=== PATIENT | female | born 2000 | race Caucasian/White ===

== ENCOUNTER → 2020-09-11 | Outpatient (CLI) | payer OTHER | LOC: LAB 15:49 | PROVIDERS: ATTEND Nurse Practitioner | DX: R69 Illness, unspecified (principal); Z20.828 Contact with and (suspected) exposure to other viral communicable diseases ==

== ENCOUNTER → 2021-05-11 | Outpatient (CLI) | payer OTHER ==
[~2021-05-11] VITALS: Ht 180.3 cm; Wt 108.9 kg
--- NOTE | 2021-05-11 11:38 | EKG ---
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
--- NOTE | 2021-05-13 18:07 | PATH ---
Formerly [facility] [address] [place] [address] PATHOLOGY RPT PROCEDURE Name: CHANDU KWOKANITA Room #: REG ARTIE Lawrence.#: [id number] Admission: 05/11/21 Date of : [birth year] Discharge: Report #: [id number] Path Case #: [id number] [facility] Accession Number: [id number] . 01 Material submitted: . PART A: ANTRUM - BX ANTRUM R/O H. PYLORI PART B: esophagus - BX DISTAL ESOPHAGUS R/O EOE. Modifiers: distal PART C: esophagus - BX MID ESOPHAGUS R/O EOE. Modifiers: mid . 01 Clinical history: . ESOPHAGEAL SPASMS, PAINFUL EATING EGD . 02 Diagnosis: A. Gastric mucosa, antrum, rule out H. pylori, endoscopic biopsy: - Mild reactive gastropathy. - Negative for intestinal metaplasia or atrophy. - Negative for Helicobacter pylori (properly controlled immunohistochemical stain performed). . B. Squamous mucosa, distal esophagus, rule out eosinophilic esophagitis, endoscopic biopsy: - Mild active esophagitis. - No increase in intraepithelial eosinophils. - Negative for intestinal metaplasia or dysplasia. . C. Squamous mucosa, mid esophagus, rule out eosinophilic esophagitis, endoscopic biopsy: - Mild active esophagitis. - No increase in intraepithelial eosinophils. - Negative for intestinal metaplasia or dysplasia. (IUV:pit; 05/13/2021) QTP 05/13/2021 1205 Local . 02 Electronically signed: . Joie Kirkpatrick MD, Pathologist NPI- [id number] . 01 Gross description: . A. The specimen is received in formalin, labeled "Chandu Kwok BX antrum". Received is a segment of pale kamara tissue measuring 0.7 cm in maximum dimensions. The specimen is submitted entirely in cassette A1. . B. The specimen is received in formalin, labeled "Chandu Kwok, distal esophagus". Received is a segment of pale kamara tissue measuring 0.5 cm in maximum dimensions. The specimen is submitted entirely in cassette B1. [address] [address] PATHOLOGY RPT PROCEDURE Name: CHANDU KWOK Room #: REG [facility]#: [id number] Admission: 05/11/21 Date of : [birth year] Discharge: Report #: [id number] Path Case #: [id number] . C. The specimen is received in formalin, labeled "Kwok, Chandu, BX mid esophagus". Received are 2 segments of pale kamara tissue ranging in size from 0.3 to 0.4 cm in maximum dimensions. The specimen is submitted entirely in cassette C1.([facility]; 05/12/2021) [facility] 05/12/2021 1419 Local . 02 Pathologist provided ICD-10: K31.9, K20.90 . 02 CPT . 890061, 929754, 521985, W20504 Specimen Comment: A courtesy copy of this report has been sent to [phone], [phone] Specimen Comment: [id number] Specimen Comment: Report sent to / DR MILLER [facility]formed [facility]: [facility] [address] [place] [address] [address], [place], [place] [id number] MD Teofilo Cardoza MD Phone: [phone] Performed at: [address] [id number] MD Joie Kirkpatrick MD Phone: [phone]
== END | disposition home or self-care (01) ==
LOC: GI 07:50
PROVIDERS: ATTEND Internal Medicine Gastroenterology
DX: R12 Heartburn (principal); R13.10 Dysphagia, unspecified; K20.90 Esophagitis, unspecified without bleeding; K31.9 Disease of stomach and duodenum, unspecified; K44.9 Diaphragmatic hernia without obstruction or gangrene; R07.89 Other chest pain; Z98.890 Other specified postprocedural states; Z79.899 Other long term (current) drug therapy
CPT/HCPCS: 62110; 62900

== ENCOUNTER 2021-10-20 12:02 | Emergency (ER) | payer OTHER ==
[~2021-10-20] VITALS: Ht 177.8 cm; Wt 127.0 kg
[2021-10-20 12:02] VITALS: BP 145/87
== END 2021-10-20 13:42 | disposition home or self-care (01) ==
LOC: ER 12:02
DX: U07.1 COVID-19 (principal)